=== PATIENT | female | born 1985 | race Asian ===

== ENCOUNTER 2018-01-11 17:25 | Inpatient (IN) | payer MEDICAID ==
[2018-01-11] MEDS ORDERED: AMPICILLIN 2 GM/NS (PMX) 100 ML (17:53)
[2018-01-11 17:56] LABS: ADD MAN DIFF? NO
[2018-01-11 17:57] LABS: BASOPHILS % 0.2 % (0.0-2.0); EOSINOPHILS # 0.1 10^3/ul (0.0-0.5); EOSINOPHILS % 0.5 % (0.0-7.0); HEMATOCRIT 33.7 % (37.0-47.0); HEMOGLOBIN 11.2 g/dl (12.0-16.0); LYMPHOCYTES # 2.2 10^3/ul (0.8-2.9); LYMPHOCYTES % 16.4 % (15.0-51.0); MEAN CORPUSCULAR HEMOGLOBIN 28.8 pg (29.0-33.0); MEAN CORPUSCULAR HGB CONC 33.2 g/dl (32.0-37.0); MEAN CORPUSCULAR VOLUME 86.6 fl (82.0-101.0); MEAN PLATELET VOLUME 9.1 fl (7.4-10.4); MONOCYTES % 7.5 % (0.0-11.0); NEUTROPHIL # 9.9 10^3/ul (1.6-7.5); NEUTROPHILS % 74.2 % (39.0-77.0); PLATELET COUNT 245 10^3/UL (140-415); RED BLOOD COUNT 3.89 10^6/ul (4.20-5.40); RED CELL DISTRIBUTION WIDTH 12.5 % (11.5-14.5)
[2018-01-11 17:57] LABS: WHITE BLOOD COUNT 13.4 10^3/ul (4.8-10.8)
[2018-01-11] MEDS ORDERED: CARBOPROST 250 MCG INJ IM ×2 (18:00→22:00)
[2018-01-11] MEDS ORDERED: OXYTOCIN 30 UNITS/LR 500 ML IV ×3 (18:00→22:00)
[2018-01-11] MEDS ORDERED: LIDOCAINE 1% (MPF) 30 ML INJ INJ (18:00)
[2018-01-11] MEDS ORDERED: METHYLERGONOVINE 0.2 MG INJ IM ×2 (18:00→22:00)
[2018-01-11] MEDS ORDERED: BUTORPHANOL 2 MG INJ IV (18:00)
[2018-01-11] MEDS ORDERED: MISOPROSTOL 200 MCG TAB PR ×2 (18:00→22:00)
[2018-01-11 18:10] LABS: INR 0.86; PROTIME 11.8 Sec (11.9-14.9); PT RATIO 0.9
[2018-01-11 18:11] LABS: PARTIAL THROMBOPLASTIN TIME 23.1 Sec (25.0-35.0)
[2018-01-11] MEDS: MINERAL OIL 30ML CUP PO (18:30)
[2018-01-11 18:46] LABS: HEPATITIS B SURFACE ANTIGEN NEGATIVE (NEGATIVE)
[2018-01-11] MEDS: IBUPROFEN 600 MG TAB PO ×2 (19:38→23:58)
[2018-01-11] MEDS: OXYTOCIN 30 UNITS/LR 500 ML IV (19:38)
[2018-01-11] MEDS ORDERED: ZOLPIDEM 5 MG TAB PO (22:00)
[2018-01-11] MEDS ORDERED: HYDROCODONE/APAP (5/325) TAB PO ×2 (22:00)
[2018-01-11] MEDS ORDERED: AMPICILLIN 1 GM/NS (PMX) 50 ML IV (22:00)
[2018-01-11] MEDS: AMPICILLIN 2 GM/NS (PMX) 100 ML IV (22:38)
[2018-01-11] MEDS: BENZOCAINE 20% 56 ML SPRAY TOP (22:39)
[2018-01-11] MEDS: DIBUCAINE 1% 30 GM OINT PR (22:39)
[2018-01-11] MEDS: WITCH HAZEL/GLYCERIN PAD PR (22:39)
[2018-01-11] MEDS: SENNA/DOCUSATE NA (8.6MG/50MG) TAB PO (22:40)
[2018-01-11] MEDS: LANOLIN 7 GM TUBE TOP (22:40)
[2018-01-11] MEDS: MAGNESIUM HYDROXIDE 30ML CUP PO (22:40)
[2018-01-11] MEDS: LACTATED RINGER'S 1,000 ML IV* (23:58)
[2018-01-12] MEDS: IBUPROFEN 600 MG TAB PO ×4 (05:39→23:35)
[2018-01-12] MEDS: LACTATED RINGER'S 1,000 ML IV* ×2 (06:02→13:36)
[2018-01-12] MEDS: SENNA/DOCUSATE NA (8.6MG/50MG) TAB PO ×2 (09:39→20:42)
[2018-01-12] MEDS: MAGNESIUM HYDROXIDE 30ML CUP PO ×2 (09:39→20:42)
[2018-01-12 10:14] LABS: ADD MAN DIFF? NO
[2018-01-12 10:16] LABS: BASOPHILS % 0.1 % (0.0-2.0); EOSINOPHILS % 0.3 % (0.0-7.0); HEMATOCRIT 26.3 % (37.0-47.0); HEMOGLOBIN 8.7 g/dl (12.0-16.0); LYMPHOCYTES # 2.1 10^3/ul (0.8-2.9); LYMPHOCYTES % 14.6 % (15.0-51.0); MEAN CORPUSCULAR HEMOGLOBIN 28.2 pg (29.0-33.0); MEAN CORPUSCULAR HGB CONC 33.1 g/dl (32.0-37.0); MEAN CORPUSCULAR VOLUME 85.4 fl (82.0-101.0); MEAN PLATELET VOLUME 9.3 fl (7.4-10.4); MONOCYTES % 7.1 % (0.0-11.0); NEUTROPHIL # 10.8 10^3/ul (1.6-7.5); NEUTROPHILS % 76.9 % (39.0-77.0); PLATELET COUNT 198 10^3/UL (140-415); RED BLOOD COUNT 3.08 10^6/ul (4.20-5.40); RED CELL DISTRIBUTION WIDTH 12.7 % (11.5-14.5)
[2018-01-13] MEDS: IBUPROFEN 600 MG TAB PO ×3 (05:48→17:36)
[2018-01-13] MEDS: DIPHTH/TET/ACEL PERTUSS (ADULT) 0.5 ML VIAL IM* (07:24)
[2018-01-13] MEDS: MAGNESIUM HYDROXIDE 30ML CUP PO (09:00)
[2018-01-13] MEDS: VARICELLA VACCINE LIVE/PF 1,350 UNIT/0.5 ML ML SC* (09:00)
[2018-01-13] MEDS: SENNA/DOCUSATE NA (8.6MG/50MG) TAB PO (09:00)
[2018-01-13] MEDS: MEASLES,MUMPS,RUBELLA VACCINE INJ SC* (09:00)
[2018-01-13 10:29] LABS: ADD MAN DIFF? NO
[2018-01-13 10:37] LABS: BASOPHILS % 0.3 % (0.0-2.0); EOSINOPHILS # 0.1 10^3/ul (0.0-0.5); EOSINOPHILS % 1.1 % (0.0-7.0); HEMOGLOBIN 9.1 g/dl (12.0-16.0); LYMPHOCYTES # 2.3 10^3/ul (0.8-2.9); LYMPHOCYTES % 20.6 % (15.0-51.0); MEAN CORPUSCULAR HEMOGLOBIN 28.8 pg (29.0-33.0); MEAN CORPUSCULAR HGB CONC 32.5 g/dl (32.0-37.0); MEAN CORPUSCULAR VOLUME 88.6 fl (82.0-101.0); MEAN PLATELET VOLUME 9.2 fl (7.4-10.4); MONOCYTE # 0.7 10^3/ul (0.3-0.9); MONOCYTES % 6.1 % (0.0-11.0); NEUTROPHIL # 7.9 10^3/ul (1.6-7.5); NEUTROPHILS % 70.5 % (39.0-77.0); PLATELET COUNT 228 10^3/UL (140-415); RED BLOOD COUNT 3.16 10^6/ul (4.20-5.40); RED CELL DISTRIBUTION WIDTH 12.6 % (11.5-14.5)
[2018-01-13 10:37] LABS: WHITE BLOOD COUNT 11.3 10^3/ul (4.8-10.8)
[2018-01-13 15:11] LABS: RAPID PLASMA REAGIN NONREACTIVE (NR)
== END 2018-01-13 18:40 | disposition home or self-care (01) | DRG 775 ==
LOC: OBT 17:25 → L-D 17:27 → OBT 17:25 → L-D 17:26 → PP1 21:12
PROVIDERS: Obstetrics & Gynecology
PROC: 10D07Z6 Extraction of Products of Conception, Vacuum, Via Natural or Artificial Opening (ICD-10-PCS; principal; 2018-01-11)
PROC: 0KQM0ZZ Repair Perineum Muscle, Open Approach (ICD-10-PCS; 2018-01-11)
PROC: 3E033VJ Introduction of Other Hormone into Peripheral Vein, Percutaneous Approach (ICD-10-PCS; 2018-01-11)
DX: O70.1 Second degree perineal laceration during delivery (principal); Z37.0 Single live birth; O76 Abnormality in fetal heart rate and rhythm complicating labor and delivery; Z3A.38 38 weeks gestation of pregnancy
CPT/HCPCS: 85025; 85610; 85730; 86592; 86850; 86870; 86900; 86901; 87340